=== PATIENT | male | born 1960 | race African-American/Black ===

== ENCOUNTER 2018-05-13 08:13 | Day surgery (SDC) | payer MEDICAID ==
[~2018-05-13 08:13] MED LIST: ACETAMINOPHEN 1,000 MG/100 ML BTL IV ONE; CLINDAMYCIN 600MG/50ML PREMIX 600 MG/50 ML BAG IVPB ONE
[2018-05-13] MEDS ORDERED: SEVOFLURANE 250 ML INH ONE (08:14)
[2018-05-13] MEDS ORDERED: ROCURONIUM BROMIDE 50MG/5ML VIAL IV ONE (08:14)
[2018-05-13] MEDS ORDERED: DEXAMETHASONE 4 MG/ML 1ML VIAL IVP ONE (08:14)
[2018-05-13] MEDS ORDERED: NEOSTIGMINE 1 MG/1 ML,10ML VIAL IV ONE (08:14)
[2018-05-13] MEDS ORDERED: MIDAZOLAM HCL 2MG/2ML VIAL IV ONE (08:14)
[2018-05-13] MEDS ORDERED: FENTANYL PF 100MCG/2ML VIAL IV ONE ×2 (08:14)
[2018-05-13] MEDS ORDERED: ONDANSETRON HCL IV 4 MG/2 ML VIAL IVP ONE (08:14)
[2018-05-13] MEDS ORDERED: GLYCOPYRROLATE 0.2 MG/ML ML IV ONE (08:14)
[2018-05-13] MEDS ORDERED: LIDOCAINE 1% MDV (10MG/ML) 20ML VIAL SQ ONE (08:14)
[2018-05-13] MEDS ORDERED: PROPOFOL 10 MG/ML VIAL IV ONE (08:14)
[2018-05-13] MEDS ORDERED: BUPIVACAINE 0.25% W/EPI MPF 30ML VIAL IVP ONE (08:14)
[2018-05-13] MEDS ORDERED: HYDROCODONE/APAP 5/325MG TABLET PO ONE (08:14)
[2018-05-13] MEDS ORDERED: ROPIVACAINE HCL (NAROPIN) /PF 5MG/ML 20ML VIAL IV ONE (08:14)
[2018-05-13 09:17] LABS: BASO % 0.4 % (0-6); GRAN % 51.6 % (47-80); HEMATOCRIT 45.5 % (42.0-52.0); HEMOGLOBIN 14.9 gm/dl (14.0-18.0); LYMPH % 34.9 % (16-45); MEAN CELL VOLUME 96.8 fl (81-97); MEAN CORPUSCULAR HEMOGLOBIN 31.7 pg (27-33); MEAN CORPUSCULAR HGB CONC 32.7 g/dl (32-36); MONO % 8.1 % (0-9); PLATELET COUNT 295 K/uL (130-400); RED CELL DISTRIBUTION WIDTH 13.7 % (11.5-14.5)
[2018-05-13 09:52] LABS: BLOOD UREA NITROGEN 18 mg/dL (6-20); CREATININE 0.8 mg/dL (0.7-1.2); EST GLOMERULAR FILTRATION RATE > 60 mL/min; GLUCOSE,RANDOM 100 mg/dL (74-109)
--- NOTE | 2018-05-14 12:20 | Operative Note ---
DATE OF SURGERY: 05/13/2018 Surgeon: Yonis Jeter DO Referring physician: Unknown. PREOPERATIVE DIAGNOSIS: Right inguinal and scrotal hernia. POSTOPERATIVE DIAGNOSIS: Right inguinal and scrotal hernia. OPERATION: Open right inguinal herniorrhaphy with mesh. Anesthesia: General. Indication: The patient is a 58-year-old male who has had a longstanding right inguinal hernia. He came to the office a while ago, scheduled surgery, however he canceled this due to employment issues. He returned to the office last week. He had a very large, reducible right inguinal and scrotal hernia. We did discuss repair, the risks, benefits, and alternatives. His risks include, but are not limited to, bleeding, infection, acute and chronic pain recurrence. He understood this fully. The consent was signed, questions were answered. PROCEDURE: He was taken to the operating room and placed in the supine position. General anesthesia was administered per the Department of Anesthesia. The patient's right inguinal region was shaved of hair and prepped and draped in sterile fashion. The oblique region was anesthetized with a total of 8 mL of 0.25% Sensorcaine with epinephrine. A block was also done medially to the ASIC as well as at the pubic tubercle. A 4 cm oblique incision was made, this was carried down to the aponeurosis of the external oblique. This was opened in junction with its fibers. Care was taken not to injure the underlying spermatic cord or ilioinguinal nerve. Superior and anterior flaps were developed and a Lisbeth was placed on the spermatic cord and this is dissected free from the underlying transabdominal fascia and retracted laterally with a Yoli drain. The floor was inspected and noted to be free of any direct herniation. At this time, the cremasteric fibers were incised. There was a very large indirect hernia sac which was dissected free from the cord structures. High ligation was done. At this time, a right-sided Procrit mesh was obtained and this was placed in the floor of the inguinal canal with excellent overlap of the pubic tubercle. The sutures were at the level of the pubic tubercle, shelving portion of the inguinal ligament and internal oblique aponeurosis. The lateral triangle was protected with the lateral aspect of the mesh. At this time, the aponeurosis was closed over the cord with 2-0 Vicryl, the Angelique's layer was closed with a 3-0 Vicryl, and the skin was closed with a 4-0 Vicryl. He tolerated the procedure well. FINDINGS AT THE TIME OF SURGERY: Right inguinal hernia, indirect. MTDD
== END 2018-05-13 12:20 | disposition home or self-care (01) ==
LOC: SUR 08:13
PROVIDERS: ATTEND Surgery
DX: K40.90 Unilateral inguinal hernia, without obstruction or gangrene, not specified as recurrent (principal); B19.20 Unspecified viral hepatitis C without hepatic coma; F17.210 Nicotine dependence, cigarettes, uncomplicated
CPT/HCPCS: 49505; 00830; 85025; 80048; 93005; J2405; J3010; J2795; J2710